=== PATIENT | female | born 1945 | race African-American/Black ===

== ENCOUNTER 2022-05-14 11:22 | Emergency (ER) | payer MEDICARE ==
[2022-05-14 13:24] LABS: Alanine Aminotransferase 8 units/L (7-56); Blood Urea Nitrogen 19 mg/dL (7-17); Calcium 8.9 mg/dL (8.4-10.2); Hemolysis Index 21
[2022-05-14 13:35] LABS: Bilirubin,Urine NEG (Negative); Blood,Urine NEG (Negative); Color,Urine Yellow (Yellow); Protein,Urine <15 mg/dL mg/dL (Negative); Urobilinogen,Urine < 2 mg/dL (<2.0)
[2022-05-14 13:37] LABS: BUN/Creatinine Ratio 27; Creatine Kinase MB < 1.0 ng/mL (0.0-4.0)
[2022-05-14 13:52] LABS: Amorphous Crystals,Urine 1+; Mucus,Urine FEW /HPF
[2022-05-14 14:20] LABS: Hematocrit 34.4 % (30.3-42.9); Hemoglobin 11.1 gm/dl (10.1-14.3); Mean Corpuscular HGB Conc 32 % (30-34); Mean Corpuscular Volume 72 fl (79-97); Platelet Count 200 K/mm3 (140-440); Red Blood Count 4.78 M/mm3 (3.65-5.03); Red Cell Distribution Width 15.5 % (13.2-15.2)
[2022-05-14 15:06] LABS: Anisocytosis 1+; Band Neutrophils # (Manual) 0.1 K/mm3; Basophils % (Manual) 0 % (0.0-1.8); Eosinophils % (Manual) 0 % (0.0-4.3); Platelet Estimate Consistent w Auto; Total Cells Counted 100
--- NOTE | 2022-05-14 15:06 | Emergency Department Report ---
ED Dizziness HPI - General Chief Complaint: Syncope Stated Complaint: WEAKNESS Time Seen by Provider: 05/14/22 14:30 Source: patient, family, EMS Mode of arrival: Stretcher Limitations: Language Barrier - History of Present Illness Initial Comments: 76-year-old female with multiple medical problems reportedly had dizziness for 1 day reportedly family thought patient might be having a stroke so hence give her some Eliquis. Patient complains now only dizziness. Denies having any trauma fever chills chest pain or cough MD Complaint: dizziness Onset/Timin -: Gradual, days(s) Timing: gradual onset Description: sense of movement, "room spinning" History of Same: No History of Trauma: No Severity: mild Improves With: nothing Worsens With: nothing Associated Symptoms: weakness - Related Data Allergies Allergy/AdvReac Type Severity Reaction Status Date / Time No Known Allergies Allergy Unverified 05/14/22 11:47 ED Review of Systems ROS: Stated complaint: WEAKNESS Other details as noted in HPI ED Past Medical Hx - Past Medical History Hx Hypertension: Yes - Social History Smoking Status: Never Smoker Substance Use Type: None ED Physical Exam - General Limitations: Language Barrier General appearance: alert, in no apparent distress - Head Head exam: Present: atraumatic, normocephalic - Eye Eye exam: Present: normal appearance, PERRL - ENT ENT exam: Present: normal exam, normal orophraynx, mucous membranes moist - Neck Neck exam: Present: normal inspection, full ROM. Absent: meningismus - Respiratory Respiratory exam: Present: normal lung sounds bilaterally. Absent: respiratory distress - Cardiovascular Cardiovascular Exam: Present: regular rate, normal rhythm. Absent: systolic murmur, diastolic murmur, rubs, gallop - GI/Abdominal GI/Abdominal exam: Present: soft, normal bowel sounds - Extremities Exam Extremities exam: Present: normal inspection - Back Exam Back exam: Present: normal inspection - Neurological Exam Neurological exam: Present: alert, oriented X3, CN II-XII intact (Right upper lower extremity with 5/5 strength. Left lower extremity with 3/5 strength) - Psychiatric Psychiatric exam: Present: normal affect, normal mood - Skin Skin exam: Present: warm, dry, intact, normal color. Absent: rash ED Course Vital Signs 05/14/22 05/14/22 05/14/22 11:23 12:38 13:18 Temperature 98.8 F 98.3 F Pulse Rate 80 73 Respiratory 18 20 13 Rate Blood Pressure 138/60 Blood Pressure 125/98 138/60 [Left] O2 Sat by Pulse 96 97 93 Oximetry 05/14/22 05/14/22 05/14/22 15:23 15:30 15:46 Temperature Pulse Rate 53 L 73 70 Respiratory 14 13 Rate Blood Pressure Blood Pressure [Left] O2 Sat by Pulse 97 96 Oximetry 05/14/22 05/14/22 05/14/22 16:00 16:16 16:26 Temperature 97.9 F Pulse Rate 70 69 74 Respiratory 14 15 25 H Rate Blood Pressure Blood Pressure 136/68 [Left] O2 Sat by Pulse 94 95 98 Oximetry 05/14/22 05/14/22 05/14/22 16:30 16:46 17:00 Temperature Pulse Rate 73 72 73 Respiratory 23 17 12 Rate Blood Pressure 136/68 122/65 132/59 Blood Pressure [Left] O2 Sat by Pulse 96 96 98 Oximetry 05/14/22 05/14/22 05/14/22 17:16 17:30 17:46 Temperature Pulse Rate 72 67 70 Respiratory 14 14 15 Rate Blood Pressure 113/70 112/64 111/83 Blood Pressure [Left] O2 Sat by Pulse 95 95 93 Oximetry ED Medical Decision Making - Lab Data Result diagrams: 05/14/22 12:36 05/14/22 12:36 - EKG Data EKG shows normal: sinus rhythm Rate: normal - EKG Data When compared to previous EKG there are: no significant change Interpretation: normal EKG - Medical Decision Making Discussed with hospitalist and teleneurology concerning patient condition patient should be admitted to the hospital. However son presented and said that mother is insisting upon going home. I have described condition and risk for mother to the son including worsening condition, worsening weakness or even . I advised son these risks and son reports she is willing to take the risk Critical care attestation.: If time is entered above; I have spent that time in minutes in the direct care of this critically ill patient, excluding procedure time. ED Disposition Clinical Impression: CVA (cerebral vascular accident) Disposition: LEFT AGAINST MEDICAL ADVICE Is pt being admited?: No Does the pt Need Aspirin: No Condition: Serious Referrals: PRIMARY CARE, [Primary Care Provider] - 3-5 Days
--- NOTE | 2022-05-14 15:38 | Cat Scan Report ---
CT HEAD WITHOUT CONTRAST INDICATION / CLINICAL INFORMATION: Headache. TECHNIQUE: Axial imaging performed from the skull apex through the skull base without the use of cont rast. Sagittal and coronal reformatted images. All CT scans at this location are performed using CT dose reduction for ALARA by means of automated exposure control. COMPARISON: None available. FINDINGS: CEREBRAL PARENCHYMA: There is mild cortical volume loss. No acute parenchymal abnormality is apprecia gutierrez. No chronic infarct. HEMORRHAGE: None. EXTRA-AXIAL SPACES: Normal in size and morphology for the patient's age. VENTRICULAR SYSTEM: Normal in size and morphology for the patient's age. MIDLINE SHIFT OR HERNIATION: None. CEREBELLUM / BRAINSTEM: No significant abnormality. CALVARIUM: No significant abnormality. ORBITS: Normal as visualized. PARANASAL SINUSES / MASTOID AIR CELLS: Normal as visualized. SOFT TISSUES of HEAD: No significant abnormality. ADDITIONAL FINDINGS: None. IMPRESSION: No acute intracranial abnormality. Mild age-appropriate cortical volume loss. Signer Name: Cody Johnson Jr, MD Signed: 05/14/2022 3:33 PM Workstation Name: [id number]
--- NOTE | 2022-05-14 17:41 | Consultation ---
History of Present Illness - Reason for Consult Consult date: 05/14/22 - History of Present Illness [facility] Consult Note # Demographics Consult Type: Acute Stroke Level 1 (0-4.5 hrs) Patient Location: Emergency Room First Name: [place] Last Name: Latoya Date of : 1945 Age: 76 Gender: Female Facility: [facility] Time of Initial Page ( Time): 05/14/2022, 17:17 Time of Return Call ( Time): 05/14/2022, 17:17 # HPI History: 76yo woman who presents with neck pain. Daughter states that she has had numbness bilaterally in her arms and legs. She was having dizziness also. Due to this, family gave her a dose of eliquis thinking she was having a stroke. Associated Symptoms: headache # Scores Time of exam and NIHSS (): 05/14/2022, 17:36 Level of Consciousness 1a: [0] = Alert; keenly responsive LOC Questions 1b: [0] = Answers both questions correctly LOC Commands 1c: [0] = Performs both tasks correctly Best Gaze 2: [0] = Normal Visual 3: [0] = No visual loss Facial Palsy 4: [0] = Normal symmetrical movements Motor Arm Left 5a: [0] = No drift Motor Arm Right 5b: [0] = No drift Motor Leg Left 6a: [1] = Drift Motor Leg Right 6b: [0] = No drift Limb Ataxia 7: [0] = Absent Sensory 8: [1] = [id number] sensory loss Best Language 9: [0] = No aphasia Dysarthria 10: [0] = Normal Extinction and Inattention 11: [0] = No abnormality NIHSS Total: 2 # Exam Vitals: vital signs reviewed # Data Head CT: no bleed per radiologist read # Assessment Impression: Ischemic Stroke (Acute) Ischemic Stroke (Subacute) # Plan Thrombolytic/Intervention: NOT IV Thrombolysis or IA Intervention candidate Thrombolytic Exclusion: > 4.5 hours Intraarterial Exclusion: clinically consistent with small vessel disease Target Blood Pressure: SBP < 220 Labs: lipid panel Imaging: (urgency: routine): CT Angiogram Head and CT Angiogram Neck MRI Brain without contrast Diagnostic Test: echo without bubble study Therapy/Evaluation: NPO until swallow evaluation PT/OT evaluation speech/swallow consultation Medication: aspirin 81 mg daily DVT Prophylaxis: SCD chemical DVT prophylaxis Other: LDL < 70 If patient has any neurological deterioration please call me back immediately permissive hypertension telemetry monitoring I have discussed my recommendations with the referring provider Disposition: admit # Demographics First Name: [place] Last Name: Latoya Facility: [facility] Medications and Allergies Allergies Allergy/AdvReac Type Severity Reaction Status Date / Time No Known Allergies Allergy Unverified 05/14/22 11:47 Exam - Constitutional Vitals: Temp Pulse Resp BP Pulse Ox 97.9 F 74 25 H 136/68 98 05/14/22 16:26 05/14/22 16:26 05/14/22 16:26 05/14/22 16:26 05/14/22 16:26 Results - Labs CBC & Chem 7: 05/14/22 12:36 05/14/22 12:36 Labs: Abnormal lab results 05/14/22 05/14/22 05/14/22 Range/Units 12:36 12:36 13:18 MCV 72 L (79-97) fl MCH 23 L (28-32) pg RDW 15.5 H (13.2-15.2) % Seg Neuts % (Manual) 81.0 H (40.0-70.0) % Lymphocytes # (Manual) 0.9 L (1.2-5.4) K/mm3 Sodium 135 L (137-145) mmol/L BUN 19 H (7-17) mg/dL Glucose 122 H (65-100) mg/dL Urine pH 8.0 H (5.0-7.0)
[2022-05-14 17:51] VITALS: BP 111/83
[2022-05-14] MEDS ORDERED: SODIUM CHLORIDE 0.9% 1000 ML 1,000 ML IV ONE (18:03)
== END 2022-05-14 20:20 | disposition left against medical advice (07) ==
LOC: ED 11:22
DX: I63.9 Cerebral infarction, unspecified (principal); I10 Essential (primary) hypertension; Z79.899 Other long term (current) drug therapy; Z79.01 Long term (current) use of anticoagulants
CPT/HCPCS: 36415; 70450; 80053; 81001; 82550; 82553; 83735; 84484; 85007; 85025; 96360; 99284; J7030